=== PATIENT | female | born 2000 | race Caucasian/White ===

== ENCOUNTER → 2022-05-19 15:00 | Outpatient (REF) | payer BC, SELFPAY ==
--- NOTE | 2022-05-19 15:10 | CA_ITS ---
Transthoracic Echocardiogram Patient (Last, First, Middle): Sondra Davenport Josephine Gender: Female Date of : 2000 Age: 21 Procedure Date: 05/19/2022 Procedure Type: Transthoracic Echocardiogram Location: [facility] Height: 172.72 cm Weight: 68.04 kg BSA: 1.81 m2 Heart Rate: 68 bpm BP: 118 / 68 mmHg Salon Assistant: SB Referring MD: Luann Encinas [employer] Symptoms: R55 SYNCOPE Study Quality: Adequate/Tender torso, unable to apply pressure ECG Rhythm: Sinus Conclusions: - The left ventricular systolic function is normal. The calculated ejection fraction is 59% by biplane method. - No obvious valvular pathology seen on this study. Findings Left Ventricle Normal left ventricular cavity size. There is normal left ventricular wall thickness. The left ventricular systolic function is normal. The calculated ejection fraction is 59% by biplane method. There is no evidence of regional wall motion abnormalities. Diastolic function is normal for age. LV peak GLS -20.5% (normal). Right Ventricle Normal right ventricular cavity size and systolic function. Atria Both atria are normal in size. Aortic Valve There is a normal trileaflet aortic valve. There is no aortic valve stenosis. There is no aortic valve regurgitation. Mitral Valve The mitral valve appears normal. There is no mitral valve regurgitation. There is no mitral valve stenosis. Pulmonic Valve The pulmonic valve is likely normal. Tricuspid Valve Normal tricuspid valve structure. There is trace tricuspid valve regurgitation. The pulmonary artery systolic pressure is normal. Great Vessels The aortic annulus, sinuses of valsalva, and asc aorta are normal in size. Venous The inferior vena cava is normal in size and collapses greater than 50% with inspiration. Pericardium/Pleural There is no evidence of pericardial effusion. Prior Study Comparison No prior study available for comparison. Recommendations, Care & Conclusions No obvious valvular pathology seen on this study. Measurements 2D Linear Measurements IVSd: 0.53 0.6-0.9/0.6-1.0 cm LVIDd: 5.19 3.9-5.3/4.2-5.9 cm LVIDd Index: 2.87 2.4-3.2/2.2-3.1 cm/m2 LVIDs: 3.41 2.0-3.6 cm LVPWd: 0.49 0.7-1.1 cm LA Diam: 3.20 2.7-3.8/3.0-4.0 cm LAIDs Index: 1.77 1.5-2.3 cm/m2 LV Mass: 103.19 67-162/88-224 g LV Mass Index: 57.01 43-95/49-115 g/m2 LVOT Diam: 2.20 3.0+(-)1.3 cm 2D Systolic Function EF 4C: 56.10 >55% EF 2C: 67.10 >55% EF BiP: 59.10 >55% Mitral Valve MV Pk E: 0.66 MV PK A: 0.59 MV Decel Time: 273.00 E/A: 1.10 E'Lateral: 14.90 E'Medial: 9.25 E/E' Med: 7.20 E/E' Lat: 4.50 PHT: 80.00 MVA PHT: 2.75 Decel Wythe: 2.43 Aortic Valve AoV Pk Shane: 1.21 AoV Mn Shane: 0.85 AoV VTI: 0.26 AoV Pk Grad: 6.00 Aov Mn Grad: 4.00 GEMINI Cont.VTI: 3.16 LVOT LVOT Pk Shane: 1.06 LVOT Mn Shane: 0.72 LVOT VTI: 0.21 LVOT Pk Grad: 4.00 LVOT Mn Grad: 3.00 LVOT Diam: 2.20 LVOT Area: 3.80 Diastolic Function MV Pk E: 0.66 MV Pk A: 0.59 E/A: 1.10 E'Medial: 9.25 E/E' Med: 7.20 E' Laterial: 14.90 E/E' Lat: 4.50 Right Ventricle TAPSE (mm): 21.70 TVS' Shane: 11.80 Tricuspid Valve RA Press: 3.00 Great Vessels Aorta Sinus of Valsalva: 2.50 2.0-3.5 cm Ao Asc: 2.30 2.1-3.4 cm Ao Arch: 2.10 Pulmonary Veins Pulm Vein S/D 1.00 Pulmonary Valve PV Pk Shane: 0.95 Peak PV Grad: 4.00 Updated in Other Vendor System with Status of Final Jose Campos MD electronically signed on 05/20/2022 10:13:51 AM with status of Final
== END ==
LOC: HO.CARD 15:00
PROVIDERS: Visit Provider Nurse Practitioner Adult Health
DX: R55 Syncope and collapse (principal)
CPT/HCPCS: 93306; 93356

== ENCOUNTER 2022-10-22 17:06 | Emergency (ER) | payer OTHER, BC, SELFPAY ==
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
[2022-10-22 17:14] VITALS: BP 132/83; BP 147/86; PULSE 104; PULSE 98; RESP 20; TEMP 36.6; O2SAT 96; O2SAT 98; BMI 26.6
[2022-10-22] MEDS: Midazolam HCl/PF 2 MG/2 ML VIAL 1 MG IVPUSH (17:50)
[2022-10-22] MEDS: Morphine Sulfate 2 MG/ML CARTRIDGE IVPUSH (17:51)
[2022-10-22] MEDS: iohexoL 350 MG/ML 100 ML INFUS..BTL IV (17:55)
[2022-10-22 19:02] LABS: MANUAL DIFF FLAG NO
[2022-10-22 19:03] LABS: Basophils Percent Auto 0.2 % (0-2); Eosinophils Absolute Auto 0.1 X10*3/uL (0.0-0.4); Eosinophils Percent Auto 0.4 % (0-4); Hematocrit 36.9 % (37.0-47.0); Hemoglobin 12.7 g/dl (12.0-16.0); Imm Gran Abs Auto 0.06 X10*3/uL (0.00-0.03); Imm Gran Pct Auto 0.5 % (0.0-0.4); Lymphocytes Absolute Auto 1.5 X10*3/uL (1.2-4.9); Lymphocytes Percent Auto 12.9 % (20-40); Mean Corpuscular HGB Conc 34.4 g/dl (31.0-35.0); Mean Corpuscular Hemoglobin 29.8 pg (27.0-33.0); Mean Corpuscular Volume 86.6 fL (80.0-98.0); Monocytes Absolute Auto 0.5 X10*3/uL (0.1-1.2); Monocytes Percent Auto 4.3 % (2-11); Neutrophils Absolute Auto 9.5 x10*3/uL (2.0-8.3); Neutrophils Percent Auto 81.7 % (45-73); Platelet Count 253 X10*3/uL (160-400); Red Blood Count 4.26 X10*6/uL (4.20-5.50); Red Cell Distribution Width 11.7 % (11.0-16.0); White Blood Count 11.6 X10*3/uL (4.8-10.8)
[2022-10-22] MEDS: Morphine Sulfate 4 MG/ML CARTRIDGE IVPUSH (19:17)
[2022-10-22 19:19] LABS: Anion Gap 12 (12-20); Blood Urea Nitrogen 10 mg/dL (9-16); Calcium 8.6 mg/dL (8.4-10.2); Carbon Dioxide 21 mmol/L (22-29); Chloride 111 mmol/L (96-108); Creatinine Clr Calc Pharmacy 127.9; Estimated Glomerular Filt Rate > 60; Glucose Random 82 mg/dL (60-115); Potassium 3.6 mmol/L (3.3-5.1); Sodium 140 mmol/L (135-145)
[2022-10-22 19:32] LABS: HCG Quantitative < 2 mIU/mL
[2022-10-22 21:38] VITALS: BP 133/84; PULSE 80; RESP 17; O2SAT 98
[2022-10-22] MEDS: oxyCODONE HCl Immed Release 5 MG TABLET PO (21:39)
== END 2022-10-22 21:57 | disposition home or self-care (01) ==
PROVIDERS: Nurse Practitioner Family; Emergency Provider Internal Medicine
DX: S13.4XXA Sprain of ligaments of cervical spine, initial encounter (principal); S29.012A Strain of muscle and tendon of back wall of thorax, initial encounter; S22.49XA Multiple fractures of ribs, unspecified side, initial encounter for closed fracture; R10.9 Unspecified abdominal pain; R51.9 Headache, unspecified; M54.2 Cervicalgia; R07.89 Other chest pain; V43.52XA Car driver injured in collision with other type car in traffic accident, initial encounter; Y93.9 Activity, unspecified; Y92.410 Unspecified street and highway as the place of occurrence of the external cause; Y99.9 Unspecified external cause status; Z79.899 Other long term (current) drug therapy
CPT/HCPCS: 36415; 70450; 71260; 72125; 72128; 72131; 74177; 80048; 84702; 85025; 96374; 96375; 96376; 99283; 99284; J2250; J2270; Q9967